=== PATIENT | male | born 1940 | race Caucasian/White ===

== ENCOUNTER 2017-12-06 07:47 | Emergency (ER) | payer OTHER ==
[~2017-12-06] VITALS: Ht 177.8 cm; Wt 74.8 kg
[~2017-12-06 07:47] MED LIST: ACCUPRIL40 MG PO; ACTOS 30 MG TAB30 MG PO; BUPROPION HCL200 MG PO; GLIMEPIRIDE; HYTRIN10 MG PO; JANUVIA100 MG PO; LOPRESSOR; NIASPAN ER 101000 M1 PO; NORCO 5-325 TA1 EACH PO; SIMVASTATIN80 MG PO
[2017-12-06] MEDS ORDERED: LISINOPRIL10 MG PO (07:58)
[2017-12-06] MEDS ORDERED: GLUCOPHAGE XR750 MG PO (07:58)
[2017-12-06] MEDS ORDERED: LIPITOR 20 MG T20 M1 PO (07:59)
[2017-12-06] MEDS ORDERED: HYTRIN 2MG CAPSU2 MG PO (07:59)
[2017-12-06] MEDS ORDERED: TRIAMCINOLONE A80 G2 TOP (08:34)
[2017-12-06] MEDS ORDERED: MEDROLDOSEPACK PO (08:34)
[2017-12-06 08:58] VITALS: BP 154/68
== END 2017-12-06 08:59 | disposition home or self-care (01) ==
LOC: M.ERS 07:47
DX: L30.9 Dermatitis, unspecified (principal); I10 Essential (primary) hypertension; E11.9 Type 2 diabetes mellitus without complications; F41.9 Anxiety disorder, unspecified; M19.90 Unspecified osteoarthritis, unspecified site; E78.5 Hyperlipidemia, unspecified; N40.0 Benign prostatic hyperplasia without lower urinary tract symptoms